=== PATIENT | male | born 1940 | race Caucasian/White ===

== ENCOUNTER → 2020-05-31 | Outpatient (CLI) | payer MEDICARE | END | disposition home or self-care (01) | LOC: CVU 09:10 | PROVIDERS: ATTEND Internal Medicine Clinical Cardiac Electrophysiology | DX: I08.8 Other rheumatic multiple valve diseases (principal); I11.9 Hypertensive heart disease without heart failure; I48.91 Unspecified atrial fibrillation | CPT/HCPCS: 93306; 93356 ==

== ENCOUNTER → 2020-06-15 | Outpatient (CLI) | payer MEDICARE ==
[~2020-06-15] MED LIST: ATROPINE SYRINGE 0.1 MG/ML, 10ML ONE; DOBUTAMINE/D5W PMX 250 ML ONE; NITROGLYCERIN 0.4 MG BOTTLE (25 TABS) SL ONE
== END | disposition home or self-care (01) ==
LOC: CARD 09:59
PROVIDERS: ATTEND Internal Medicine Clinical Cardiac Electrophysiology
DX: I35.0 Nonrheumatic aortic (valve) stenosis (principal)
CPT/HCPCS: 93017; 93350; J1250; J0461

== ENCOUNTER 2020-06-24 10:21 | Day surgery (SDC) | payer MEDICARE ==
[~2020-06-24] VITALS: Ht 167.6 cm; Wt 73.6 kg
[2020-06-24] MEDS ORDERED: AMIO200T42 PO (10:53)
[2020-06-24] MEDS ORDERED: APIX5TAB PO (10:53)
[2020-06-24] MEDS ORDERED: ATOR40TA78 PO (10:53)
[2020-06-24] MEDS ORDERED: CARV3.122 PO (10:53)
[2020-06-24] MEDS ORDERED: ASPI81TA45 PO (10:53)
[2020-06-24 11:10] VITALS: BP 152/81
[2020-06-24 11:27] LABS: BASOPHILS # (AUTO) 0.03 x10^3/uL (0-0.1); BASOPHILS % (AUTO) 1 % (0-1); EOSINOPHILS % (AUTO) 2 % (1-7); LYMPHOCYTES # (AUTO) 0.88 x10^3/uL (1-3.4); LYMPHOCYTES % (AUTO) 17 % (22-44); MD NO; MEAN CORPUSCULAR HEMOGLOBIN 29.5 pg (27.5-34.5); MEAN CORPUSCULAR HGB CONC 33.2 g/dL (33.2-36.2); MEAN CORPUSCULAR VOLUME 88.8 fL (81-97); MEAN PLATELET VOLUME 6.9 fL (7.4-10.4); MONOCYTES # (AUTO) 0.69 x10^3/uL (0.2-0.8); MONOCYTES % (AUTO) 13 % (2-9); NEUTROPHILS % (AUTO) 68 % (42-75); PLATELET COUNT 211 x10^3/uL (130-400); RED BLOOD COUNT 5.21 x10^6/uL (4.38-5.82); RED CELL DISTRIBUTION WIDTH 14.2 % (9.4-14.8)
[2020-06-24 11:37] LABS: ANION GAP 5 mmol/L (5-15); CALCIUM 9.4 mg/dL (8.5-10.1); CHLORIDE 110 mmol/L (98-107); CREATININE 0.85 mg/dL (0.7-1.3)
[2020-06-24 11:39] LABS: INTERNATIONAL NORMALIZED RATIO 1.04 (0.93-1.1); PROTHROMBIN TIME 10.7 Seconds (9.6-11.5)
[2020-06-24] MEDS ORDERED: FENTANYL PF 100 MCG/2ML ONE (12:43)
[2020-06-24] MEDS ORDERED: VERAPAMIL 2.5 MG/ML, 2ML ONE (12:44)
[2020-06-24] MEDS ORDERED: BIVALIRUDIN 250 MG ONE (12:44)
[2020-06-24] MEDS ORDERED: LIDOCAINE-MPF 1%, 5ML ONE (12:44)
[2020-06-24] MEDS ORDERED: MIDAZOLAM 1 MG/ML, 5ML ONE (12:44)
[2020-06-24] MEDS ORDERED: HEPARIN 1,000 UNITS/ML, 10ML ONE (12:44)
[2020-06-24] MEDS ORDERED: NITROGLYCERIN 30 MCG/ML, 20ML VIAL ONE (12:52)
[2020-06-24] MEDS ORDERED: SODIUM CHLORIDE 0.9% 1,000 ML IV SCH (14:36)
== END 2020-06-24 16:10 | disposition home or self-care (01) ==
LOC: CACL 10:21
PROVIDERS: ATTEND Internal Medicine Cardiovascular Disease
DX: I35.0 Nonrheumatic aortic (valve) stenosis (principal); I25.810 Atherosclerosis of coronary artery bypass graft(s) without angina pectoris; I11.0 Hypertensive heart disease with heart failure; I50.33 Acute on chronic diastolic (congestive) heart failure; I48.0 Paroxysmal atrial fibrillation; I25.9 Chronic ischemic heart disease, unspecified; E78.5 Hyperlipidemia, unspecified; Z79.82 Long term (current) use of aspirin; Z79.899 Other long term (current) drug therapy; Z79.01 Long term (current) use of anticoagulants; Z98.890 Other specified postprocedural states
CPT/HCPCS: 36415; 80048; 85025; 85610; 85730; 93455; 99156; 99157; C1769; C1894; J1644; J2250; J3010; Q9967; J0583

== ENCOUNTER 2020-07-07 09:21 | Outpatient (CLI) | payer MEDICARE ==
[~2020-07-07 09:21] MED LIST changes: +AMIO200T42 PO; +APIX5TAB PO; +ASPI81TA45 PO; +ATOR40TA78 PO; -ATROPINE SYRINGE 0.1 MG/ML, 10ML ONE; +CARV3.122 PO; -DOBUTAMINE/D5W PMX 250 ML ONE; -NITROGLYCERIN 0.4 MG BOTTLE (25 TABS) SL ONE
[2020-07-07] MEDS ORDERED: VISIPAQUE 320 MG/ML, 150ML BOTTLE ONE (12:02)
[2020-07-12] MEDS ORDERED: hydrALAzine 20 MG/ML, 1ML ONE (09:13)
== END 2020-07-07 23:59 | disposition home or self-care (01) ==
LOC: CVU 09:21 → RAD 23:59
PROVIDERS: ATTEND Internal Medicine Cardiovascular Disease
DX: Z01.810 Encounter for preprocedural cardiovascular examination (principal); Z20.828 Contact with and (suspected) exposure to other viral communicable diseases; R06.02 Shortness of breath; I65.23 Occlusion and stenosis of bilateral carotid arteries; I35.8 Other nonrheumatic aortic valve disorders; I25.10 Atherosclerotic heart disease of native coronary artery without angina pectoris; I10 Essential (primary) hypertension; I48.91 Unspecified atrial fibrillation; E78.5 Hyperlipidemia, unspecified
CPT/HCPCS: 36415; 71275; 74174; 87635; 93880; 94010; 94726; 94729; Q9967

== ENCOUNTER 2020-07-12 06:15 | Inpatient (IN) | payer MEDICARE ==
[~2020-07-12] VITALS: Ht 167.6 cm; Wt 75.0 kg
[2020-07-12] MEDS ORDERED: SODIUM CHLORIDE 0.9% 1,000 ML IV ONE (06:38)
[2020-07-12 06:42] VITALS: BP 150/90
[2020-07-12] MEDS ORDERED: ONDANSETRON 2MG/ML, 2ML IVPush PRN (07:00)
[2020-07-12 07:17] LABS: BASOPHILS # (AUTO) 0.04 x10^3/uL (0-0.1); BASOPHILS % (AUTO) 1 % (0-1); EOSINOPHILS # (AUTO) 0.15 x10^3/uL (0-0.4); EOSINOPHILS % (AUTO) 3 % (1-7); LYMPHOCYTES % (AUTO) 12 % (22-44); MD NO; MEAN CORPUSCULAR HEMOGLOBIN 29.2 pg (27.5-34.5); MEAN CORPUSCULAR HGB CONC 32.8 g/dL (33.2-36.2); MEAN CORPUSCULAR VOLUME 89.1 fL (81-97); MEAN PLATELET VOLUME 6.5 fL (7.4-10.4); MONOCYTES # (AUTO) 0.54 x10^3/uL (0.2-0.8); MONOCYTES % (AUTO) 10 % (2-9); NEUTROPHILS # (AUTO) 3.84 x10^3/uL (1.8-6.8); NEUTROPHILS % (AUTO) 74 % (42-75); PLATELET COUNT 195 x10^3/uL (130-400); RED BLOOD COUNT 5.31 x10^6/uL (4.38-5.82); RED CELL DISTRIBUTION WIDTH 14.1 % (9.4-14.8)
[2020-07-12 07:22] LABS: ALANINE AMINOTRANSFERASE 26 U/L (12-78); ALBUMIN 3.8 g/dL (3.4-5.0); ANION GAP 7 mmol/L (5-15); CALCIUM 9.1 mg/dL (8.5-10.1); CHLORIDE 109 mmol/L (98-107)
[2020-07-12 07:26] LABS: ALKALINE PHOSPHATASE 74 U/L (45-117); BILIRUBIN,TOTAL 0.9 mg/dL (0.2-1.0); CREATININE 0.97 mg/dL (0.7-1.3); TOTAL PROTEIN 7.1 g/dL (6.4-8.2)
[2020-07-12] MEDS ORDERED: SODIUM CHLORIDE 0.9% PF 10ML ONE (07:42)
[2020-07-12] MEDS ORDERED: HEPARIN 1,000 UNITS/ML, 10ML ONE ×2 (07:42)
[2020-07-12] MEDS ORDERED: ROCURONIUM 10 MG/ML,10ML ONE (07:42)
[2020-07-12] MEDS ORDERED: LIDOCAINE-MPF 2% ,5ML ONE (07:42)
[2020-07-12] MEDS ORDERED: FENTANYL PF 250 MCG/5ML ONE (07:47)
[2020-07-12 07:54] LABS: INTERNATIONAL NORMALIZED RATIO 1.07 (0.93-1.1)
[2020-07-12] MEDS ORDERED: ONDANSETRON 2MG/ML, 2ML ONE (08:22)
[2020-07-12] MEDS ORDERED: SUCCINYLCHOLINE 20 MG/ML, 10ML ONE (08:22)
[2020-07-12] MEDS ORDERED: SUGAMMADEX 200 MG/2 ML IVPush ONE (08:22)
[2020-07-12] MEDS ORDERED: PROPOFOL 10 MG/ML, 20ML ONE (08:22)
[2020-07-12] MEDS ORDERED: DEXAMETHASONE 4 MG/ML, 1ML ONE (08:22)
[2020-07-12] MEDS ORDERED: CEFAZOLIN 1,000 MG ONE (08:22)
[2020-07-12] MEDS ORDERED: PROTAMINE SULFATE 10 MG/ML, 5ML ONE (08:49)
[2020-07-12] MEDS: APIXABAN 5 MG TABLET PO SCH ×2 (09:00→21:26)
[2020-07-12] MEDS ORDERED: HYDROcodone/APAP 5/325 TABLET PO PRN (09:30)
[2020-07-12] MEDS ORDERED: LABETALOL 5MG/ML 40ML VIAL IVPush PRN (09:30)
[2020-07-12] MEDS ORDERED: ACETAMINOPHEN 325 MG TABLET PO PRN (09:30)
[2020-07-12] MEDS ORDERED: hydrALAzine 20 MG/ML, 1ML IVPush PRN (09:30)
[2020-07-12] MEDS ORDERED: APIXABAN 5 MG TABLET ONE (09:41)
[2020-07-12] MEDS: CARVEDILOL 3.125 MG TABLET PO SCH ×2 (11:24→21:26)
[2020-07-12] MEDS: ASPIRIN 81 MG TABLET EC PO SCH (11:24)
[2020-07-12] MEDS: AMIODARONE 200 MG TABLET PO SCH (11:25)
[2020-07-12 12:20] VITALS: BP 111/59
[2020-07-12] MEDS ORDERED: ATORVASTATIN 40 MG TABLET PO SCH (21:00)
[2020-07-12 21:23] VITALS: BP 113/57
[2020-07-13 00:22] VITALS: BP 118/66
[2020-07-13 04:54] LABS: MEAN CORPUSCULAR HEMOGLOBIN 29.4 pg (27.5-34.5); MEAN CORPUSCULAR HGB CONC 32.6 g/dL (33.2-36.2); MEAN CORPUSCULAR VOLUME 90.2 fL (81-97); MEAN PLATELET VOLUME 7.1 fL (7.4-10.4); PLATELET COUNT 163 x10^3/uL (130-400); RED BLOOD COUNT 4.68 x10^6/uL (4.38-5.82); RED CELL DISTRIBUTION WIDTH 13.9 % (9.4-14.8)
[2020-07-13 04:57] LABS: ANION GAP 6 mmol/L (5-15); CALCIUM 8.8 mg/dL (8.5-10.1); CHLORIDE 108 mmol/L (98-107)
[2020-07-13 04:58] LABS: CREATININE 0.89 mg/dL (0.7-1.3)
[2020-07-13 05:35] LABS: MD YES
[2020-07-13 05:38] LABS: <PLATELET ESTIMATE> ADEQUATE; <PLT MORPHOLOGY> NORMAL PLT MORPH; <RBC MORPHOLOGY> NORMAL; LYMPH#(MANUAL) 0.14 x10^3/uL (1-3.4); LYMPHS% (MANUAL) 1 % (22-44); MONOS#(MANUAL) 0.99 x10^3/uL (0.3-2.7); MONOS% (MANUAL) 7 % (2-9); SEG#(MANUAL) 12.97 x10^3/uL (1.8-6.8); SEGS% (MANUAL) 92 % (42-75)
[2020-07-13 06:59] VITALS: BP 118/61
[2020-07-13] MEDS: CARVEDILOL 3.125 MG TABLET PO SCH (08:40)
[2020-07-13] MEDS: ASPIRIN 81 MG TABLET EC PO SCH (08:40)
[2020-07-13] MEDS: AMIODARONE 200 MG TABLET PO SCH (08:40)
[2020-07-13] MEDS: APIXABAN 5 MG TABLET PO SCH (08:40)
[2020-07-13] MEDS ORDERED: ACET325T26 PO (09:59)
== END 2020-07-13 13:30 | disposition home or self-care (01) | DRG 266 ==
LOC: ORIP 06:15 → 5SO 10:36 → DCLOUNGE 07-13 13:23
PROVIDERS: ADMIT Internal Medicine Cardiovascular Disease; ATTEND Internal Medicine Cardiovascular Disease
PROC: B245ZZ4 Ultrasonography of Left Heart, Transesophageal (ICD-10-PCS; 2020-07-12)
PROC: B4101ZZ Fluoroscopy of Abdominal Aorta using Low Osmolar Contrast (ICD-10-PCS; 2020-07-12)
PROC: 02RF38Z Replacement of Aortic Valve with Zooplastic Tissue, Percutaneous Approach (ICD-10-PCS; principal; 2020-07-12 08:00)
DX: I35.0 Nonrheumatic aortic (valve) stenosis (principal); I50.33 Acute on chronic diastolic (congestive) heart failure; D68.69 Other thrombophilia; I48.0 Paroxysmal atrial fibrillation; E78.5 Hyperlipidemia, unspecified; I11.0 Hypertensive heart disease with heart failure; I25.10 Atherosclerotic heart disease of native coronary artery without angina pectoris; Z95.2 Presence of prosthetic heart valve; Z95.1 Presence of aortocoronary bypass graft; Z00.6 Encounter for examination for normal comparison and control in clinical research program
CPT/HCPCS: 36415; 80048; 80053; 85025; 85347; 85610; 86850; 86900; 86923; 93005; 93306; 93312; 93320; 93325; G0378; J0690; J1100; J1644; J2405; J2704; J2720; J3010; J0330; J0360; J7030

== ENCOUNTER → 2020-08-16 | Outpatient (CLI) | payer MEDICARE ==
[~2020-08-16] MED LIST changes: +ACET325T26 PO
== END | disposition home or self-care (01) ==
LOC: CVU 09:19
PROVIDERS: ATTEND Internal Medicine Cardiovascular Disease
DX: I34.8 Other nonrheumatic mitral valve disorders (principal); I11.9 Hypertensive heart disease without heart failure; I65.29 Occlusion and stenosis of unspecified carotid artery; Z95.2 Presence of prosthetic heart valve
CPT/HCPCS: 93306; 93356